=== PATIENT | female | born 1980 | race Hispanic/Latino ===

== ENCOUNTER 2017-02-22 19:09 | Emergency (ER) | payer OTHER, SELFPAY ==
[2017-02-22 20:03] LABS: Bilirubin Negative (Negative); Blood, Urine Negative (Negative); Glucose, Urine (Dipstick) Negative (Negative); Ketone, Urine Negative (Negative); Nitrite Negative (Negative); Protein, Urine (Dipstick) Negative (Neg-Trace); Urobilinogen 0.2 mg/dL (0.2-1.0)
[2017-02-22 20:04] LABS: Bacteria/HPF 1+ HPF (None Seen); Hyaline Casts/LPF 0-3 HYALINE CAST LPF (0-3 Hyaline); RBC/HPF 0-3 HPF (0-3); WBC/HPF 21-50 HPF (0-3)
[2017-02-22 20:17] LABS: #Basophils 0.1 thou/uL (0.0-0.2); #Eosinphils 0.1 thou/uL (0.0-0.7); #Lymphocytes 3.3 thou/uL (1.20-3.40); #Monocytes 0.8 thou/uL (0.11-0.59); #Neutrophils 5.2 thou/uL (1.40-6.50); %Basophils 0.7 % (0.0-1.0); %Eosinophils 1.2 % (0.0-10.0); %Lymphocytes 34.9 % (21.0-51.0); %Monocytes 8.8 % (0.0-10.0); Hematocrit 39.8 % (36.0-47.0); Mean Platelet Volume 6.8 fL (7.4-10.4); Red Blood Cell (RBC) Count 4.39 mill/uL (4.20-5.40); White Blood Cell (WBC) Count 9.5 thou/uL (4.8-10.8)
[2017-02-22 20:22] LABS: PTT 29.7 SEC (22.9-36.1)
[2017-02-22 20:31] LABS: ALT (SGPT) 14 U/L (8-55); AST (SGOT) 14 U/L (5-34); Alkaline Phosphatase 82 U/L (40-150); Anion Gap 15 mmol/L (10-20); BUN (Urea Nitrogen) 19 mg/dL (7.0-18.7); Bilirubin, Total 0.3 mg/dL (0.2-1.2); Calc. Creatinine Clearance 0 mL/min (70-130); Calcium 9.7 mg/dL (7.8-10.44); Carbon Dioxide 21 mmol/L (22-29); Chloride 105 mmol/L (98-107); Estimated GFR-MDRD Greater than 90; Protein, Total 8.4 g/dL (6.0-8.3)
--- NOTE | 2017-02-22 22:15 | ULT ---
EXAM: PELVIC ULTRASOUND 02/22/17 COMPARISON: 04/27/16 HISTORY: patient. Cramping. TECHNIQUE: Transabdominal and endovaginal imaging of the pelvis is performed. Ovaries are interrogated with gra y scale, color flow, and doppler imaging with spectral waveform analysis. FINDINGS: The uterus is identified, without myometrial masses. The uterus measures 5.3 x 5.4 x 9.4 cm. There i s a thickened homogeneous endometrium with a diameter of 1.7 cm. No evidence of a gestational sac, y olk sac or pole. Anechoic focus in the right ovary measuring 3.1 x 2.6 x 3.1 cm, likely representing a corpus luteal cyst. Overall, the right ovary measures 3.6 x 4.7 x 3.5 cm. Left ovary has a normal echotexture measuring 2.5 x 1.4 x 2.3 cm. There is a small amount of simple fluid in the cul-de-sac. OVARIAN DOPPLER: Vascular flow to the right ovary. Vascular flow to the left ovary could not be documented. Limited d ocumentation may be due to location of the ovary. IMPRESSION: 1. Thickened homogeneous endometrium without evidence of an intrauterine gestation. Differentia l considerations include early intrauterine gestation versus mid spontaneous versus sonogra phic occult ectopic. 2. Simple free fluid in the pelvis. 3. Left ovarian cyst likely corpus luteal cyst. 4. Nonvisualization of flow in the left ovary which is presumed to be due to the position of th e ovary. The echotexture of the left ovary is unremarkable and has not significantly changed when co mpared to the prior examination. 5. Followup ultrasound and serial beta HCGs are recommended. POS: [facility]YANNA
[2017-02-22] MEDS ORDERED: Acetaminophen 500 MG TAB ONE ×2 (23:00→23:03)
[2017-02-22] MEDS ORDERED: Nitrofurantoin Monohyd/M-Cryst 100 MG CAP PO SCH (23:15)
== END 2017-02-22 23:17 | disposition home or self-care (01) ==
LOC: ERS 19:09
DX: O20.0 Threatened abortion (principal); O23.41 Unspecified infection of urinary tract in pregnancy, first trimester; O16.1 Unspecified maternal hypertension, first trimester; Z3A.01 Less than 8 weeks gestation of pregnancy
CPT/HCPCS: 36415; 76856; 80053; 81003; 81015; 84702; 85025; 85610; 85730; 86900; 86901; 87480; 87491; 87510; 87591; 87660

== ENCOUNTER 2017-03-17 16:43 | Emergency (ER) | payer SELFPAY ==
[2017-03-17 17:27] LABS: Bilirubin Negative (Negative); Blood, Urine Negative (Negative); Glucose, Urine (Dipstick) Negative (Negative); Ketone, Urine Negative (Negative); Nitrite Negative (Negative); Protein, Urine (Dipstick) Negative (Neg-Trace); Urobilinogen 0.2 mg/dL (0.2-1.0)
[2017-03-17 21:25] LABS: #Eosinphils 0.1 thou/uL (0.0-0.7); #Lymphocytes 2.4 thou/uL (1.20-3.40); #Monocytes 0.6 thou/uL (0.11-0.59); #Neutrophils 3.7 thou/uL (1.40-6.50); %Basophils 0.7 % (0.0-1.0); %Eosinophils 1.4 % (0.0-10.0); %Lymphocytes 34.8 % (21.0-51.0); %Monocytes 9.1 % (0.0-10.0); Mean Platelet Volume 6.6 fL (7.4-10.4); Red Blood Cell (RBC) Count 4.03 mill/uL (4.20-5.40); White Blood Cell (WBC) Count 6.9 thou/uL (4.8-10.8)
--- NOTE | 2017-03-17 22:27 | ULT ---
PELVIC ULTRASOUND: History: Pelvic pain to the lower right side. 9 weeks . Comparison: 02-22-17 Technique: Transabdominal and endovaginal imaging of the pelvis is performed. Ovaries were interrogat ed with grayscale, color flow, and doppler imaging with spectral waveform analysis. FINDINGS: The uterus is identified. There are no myometrial masses. Uterus measures 6.4 x 7.7 x 11.1 cm. There is a complex nabothian cyst measuring 1.1 x 1.2 x 0.9 cm. Within the endometrium there is a gestational sac, yolk sac, and pole. Munson-rump length is 1.2 9 cm corresponding to gestational age of 7 weeks 3 days. There are heart tones at the rate of 1 41 bpm. Left ovary is not appreciated. In the right adnexa there is anechoic focus measuring 2.9 x 2.7 x 3.2 cm. Presumed right nabothian cy st. Cyst has not changed in size. Overall the right ovary measures 4.5 x 4.6 x 4.0 cm. There is no free fluid. No subchorionic hemorrhage. Ovarian Doppler: Vascular flow to the right ovary. IMPRESSION: 1. Single intrauterine gestation with heart tones. Average age by sonography is 7 weeks and 4 d ays. Estimated delivery date by sonography is 10-30-17. 2. Right ovarian cyst, unchanged from the prior examination. Possibility of a corpus luteal cyst is r aised. POS: [facility]
== END 2017-03-17 23:06 | disposition home or self-care (01) ==
LOC: ERS 16:43
DX: O09.521 Supervision of elderly multigravida, first trimester (principal); O99.89 Other specified diseases and conditions complicating pregnancy, childbirth and the puerperium; R10.32 Left lower quadrant pain; O10.011 Pre-existing essential hypertension complicating pregnancy, first trimester; Z3A.09 9 weeks gestation of pregnancy
CPT/HCPCS: 36415; 76856; 81003; 84702; 85025; 86850; 86900; 86901

== ENCOUNTER 2017-10-08 21:46 | Day surgery (SDC) | payer OTHER ==
[2017-10-08 22:29] VITALS: BMI 31.8
--- NOTE | 2017-10-08 22:57 | PDOC.LDHP ---
Labor and Delivery H&P Chief complaint: contractions HPI: 37yo at 36.6 by 7.4wk leatha presents for ctx, onset this evening, q4-5 per hour. She also reports nausea for the past couple of days and COOK, not resolved by Tylenol at home. She reports good FM, no LOF, no VB, and no scotoma. She has hx of A1GDM and reports her sugars are no greater than 120 at home. Current gestational age (weeks): 36 (36.6) Due date: 10/30/17 Dating criteria: first trimester ultrasound Grav: 6 Para: 3 OB History Details: 3 term , 2 complicated by preeclampsia 2 spontaneous abortions Current complications: gestational diabetes Abnormal US findings: Yes (polyhydramnios and placenta previa, resolved on last u/s done at 34wks) Past Medical History: none Current medications: pre-estiven vitamins Previous surgical history: none Social history: none - Physical Exam Vital signs reviewed and normal: yes General: NAD, resting Heart: RRR Lungs: CTAB Abdomen: gravid Extremeties: no edema FHT: category 1 [place] contractions every: q10-15 min - Vaginal Exam cm dilated: 2 Effacement: 50% Station: -2 - OB Labs Blood type: O RH: positive Antibody Screen: negative HIV: negative RPR: negative HEPSAg: negative 1 hour GCT: positive GBS: positive Urine drug screen: not done Rubella: immune - Assessment 37 yo at 36.6 by 1T u/s presents with ctx q10-15 min. sIUP: IOL wnl with the exception 1h ggt A1GDM: controlled with A1c of 5.4 and home sugars 120's. Hx of preeclampsia: with COOK and nausea, will check CBC, urine pro/cr, coags, and CMP. BP's wnl here AMA: declined quad screen Labor: cat 1 strip, 2/50/-2, cervical exam with thick white discharge, vp3 pending. check above labs for pre-E and recheck in 2h to evaluate change. - Plan Plan: observation in L&D <Pam Arvizu - Last Filed: 10/09/17 01:19> <Vipul Gibbs - Last Filed: 10/09/17 06:08> Allergies/Adverse Reactions: Allergies Allergy/AdvReac Type Severity Reaction Status Date / Time No Known Allergies Allergy Verified 10/08/17 22:24 Attending Addendum - Attending Addendum Date/Time: 10/09/17605 I personally evaluated the patient and discussed the management with Dr. Arvizu. I agree with and repeated the History, Examination, Assessment and Plan documented above with any addition or exceptions noted below. Pt with headache that has been waxing and waning x 1 week. No scotoma or visual symptoms. No RUQ/JOSSE pain. She has had some intermittent nausea but no vomiting. +FM, no LOF, has some blood on TP several days ago but none recently. Reassuring pressures. Will send labs, repeat APAP, dispo pending. <Vipul Gibbs - Last Filed: 10/09/17 06:08>
[2017-10-08 23:03] VITALS: BP 135/81; TEMP 98.1
[2017-10-08] MEDS ORDERED: Acetaminophen 500 MG TAB PO SCH (23:30)
[2017-10-08 23:58] LABS: #Eosinphils 0.1 thou/uL (0.0-0.7); #Monocytes 0.6 thou/uL (0.11-0.59); #Neutrophils 4.4 thou/uL (1.40-6.50); %Basophils 0.5 % (0.0-1.0); %Monocytes 8.5 % (0.0-10.0); %Neutrophils 61.9 % (42.0-75.0); Mean Corpuscular HGB CONC 35.1 g/dL (32.0-36.0); Mean Corpuscular Volume 91.3 fL (78.0-98.0); Mean Platelet Volume 7.1 fL (7.4-10.4); Platelet Count 242 thou/uL (130-400); RBC Distribution Width 12.9 % (11.5-14.5); Red Blood Cell (RBC) Count 3.76 mill/uL (4.20-5.40); White Blood Cell (WBC) Count 7.2 thou/uL (4.8-10.8)
[2017-10-09 00:24] LABS: ALT (SGPT) 16 U/L (8-55); AST (SGOT) 15 U/L (5-34); Albumin 3.4 g/dL (3.5-5.0); Alkaline Phosphatase 166 U/L (40-150); Anion Gap 14 mmol/L (10-20); BUN (Urea Nitrogen) 10 mg/dL (7.0-18.7); Bilirubin, Total 0.3 mg/dL (0.2-1.2); Calc. Creatinine Clearance 181 mL/min (70-130); Calcium 8.9 mg/dL (7.8-10.44); Carbon Dioxide 18 mmol/L (22-29); Chloride 108 mmol/L (98-107); Estimated GFR-MDRD Greater than 90; Globulin 3.2 g/dL (2.4-3.5); Glucose 92 mg/dL (70-105); Potassium 3.7 mmol/L (3.5-5.1); Protein, Total 6.6 g/dL (6.0-8.3); Sodium 136 mmol/L (136-145)
[2017-10-09 00:52] LABS: Creatinine, Urine 71.97 mg/dL (47-110); Protein, Urine Random Quant Less than 10 mg/dL
[2017-10-09 01:01] LABS: PTT 26.4 SEC (22.9-36.1); Prothrombin Time 12.8 SEC (12.0-14.7)
--- NOTE | 2017-10-09 02:22 | PDOC.EVN ---
Event Note - Event Note Event Note: Patient was checked 0215 and was 2.5/60/-2. Reports COOK is improved. Pre-E labs within normal, VP3 still pending. Ctx spaced increased after stimulation with exam, but have again spaced out to about q10 min. Cat 1 strip. With minimal change and normal labs, will d/c home. Likely patient is in latent labor. ER precautions given. <Pam Arvizu - Last Filed: 10/09/17 02:19> Attending Addendum - Attending Addendum Date/Time: 10/09/17 0609 Reassuring labs, pressures, and resolved headache. Will discharge with f/u at [facility]. <Vipul Gibbs - Last Filed: 10/09/17 06:09>
== END 2017-10-09 02:27 | disposition home or self-care (01) ==
LOC: L&D/OP 21:46
PROVIDERS: ATTEND Emergency Medicine
DX: O60.03 Preterm labor without delivery, third trimester (principal); O24.419 Gestational diabetes mellitus in pregnancy, unspecified control; Z3A.36 36 weeks gestation of pregnancy
CPT/HCPCS: 36415; 80053; 82570; 84156; 85025; 85610; 85730; 87480; 87510; 87660; 99285

== ENCOUNTER 2017-10-11 01:36 | Day surgery (SDC) | payer OTHER ==
[2017-10-11 02:02] VITALS: BP 129/65; TEMP 98.1
[2017-10-11 02:04] VITALS: BMI 31.8
--- NOTE | 2017-10-11 03:30 | PDOC.LDHP ---
Labor and Delivery H&P Chief complaint: decreased movement HPI: 37yo at 36.6 by 7.4wk letaha presents for decreased FM, reporting she hasn 't felt baby move since 1800 10/10. She denies N/V, COOK, no LOF, and no scotoma. She reports some blood tinged mucous discharge today. Had several ctx yesterday , but have down and is not currently having ctx at this time. She is A1GDM and reports her sugars are no greater than 120 at home. She has hx of preeclampsia with two prior pregnancies. She was recently seen in clinic and in the hospital. Current gestational age (weeks): 37 (37.0) Due date: 10/30/17 Dating criteria: first trimester ultrasound Grav: 6 Para: 3 OB History Details: 3 term , 2 complicated by preeclampsia 2 spontaneous abortions Current complications: gestational diabetes Abnormal US findings: Yes (Yes (polyhydramnios and placenta previa, resolved on last u/s done at 34wks) Past Medical History: none Current medications: pre-estiven vitamins Social history: none - Physical Exam Vital signs reviewed and normal: yes General: NAD Heart: RRR Lungs: nonlabored breathing Abdomen: gravid Extremeties: trace edema FHT: category 1 [place] contractions every: none - OB Labs Blood type: O RH: positive Antibody Screen: negative HIV: negative RPR: negative HEPSAg: negative 1 hour GCT: positive GBS: positive Urine drug screen: negative Rubella: immune - Assessment 37 yo at 36.6 by 1T u/s presents with decreased sIUP: IOL reviewed, wnl with the exception 1h ggt A1GDM: A1c of 5.4, reports home sugars <120 Hx of preeclampsia: no s/sx at this time, BP wnl, negative workup 2 days prior. On ASA, continue. AMA: declined quad screen Labor: cat 1 strip, no ctx apparent, last office check was 3cm per patient. BPP and growth u/s ordered. Will d/c or admit pending results. - Plan Plan: observation in L&D <Pam Arvizu - Last Filed: 10/11/17 03:44> <Emily Stephens - Last Filed: 10/11/17 04:03> Allergies/Adverse Reactions: Allergies Allergy/AdvReac Type Severity Reaction Status Date / Time No Known Allergies Allergy Verified 10/08/17 22:24 Attending Addendum - Attending Addendum Date/Time: 10/11/17 0359 I personally evaluated the patient and discussed the management with Dr. Arvizu and Dr. Dejesus I agree with the History, Examination, Assessment and Plan documented above with any addition or exceptions noted below. 37 yo female at 37.0 wks by 7.4 wk sono here for evaluation of decreased movement. Patient reports less movement from fetus today since 1800. Since arrival has felt movement and is more reassured. NST is reactive. No contractions. + movement on monitoring. BPP is currently pending along with growth. POC glucose 100. Patient reports home readings are less than 120. VS reviewed. BP WNL. Patient with hx of preE and on ASA ppx. Once BPP completed, as long as remains reassuring will d/c patient to home with follow up at PCP next week. Precautions discussed. Kathe <Emily Stephens - Last Filed: 10/11/17 04:03>
--- NOTE | 2017-10-11 06:44 | PDOC.EVN ---
Event Note - Event Note Event Note: Patient has had a reactive strip and has 8/8 BPP. Awaiting official report for growth. Will send home with f/u this upcoming week and ER precautions.
--- NOTE | 2017-10-11 08:09 | ULT ---
BIOPHYSICAL PROFILE: Date: 10/11/17 INDICATION: Decreased movement. FINDINGS/IMPRESSION: Tone: 2 Breathin Movement: 2 Amniotic Fluid: 2 Total Score: 8/8 FAY recorded at 7.2 cm. Position: Vertex. Placenta: Anterior. Heart Rate: 131. POS: [facility]
[2017-10-11] MEDS ORDERED: metroNIDAZOLE 500 MG TAB PO SCH (09:00)
== END 2017-10-11 06:20 | disposition home or self-care (01) ==
LOC: L&D/OP 01:36
PROVIDERS: ATTEND Student in an Organized Health Care Education/Training Program
DX: O36.8130 Decreased fetal movements, third trimester, not applicable or unspecified (principal); O24.419 Gestational diabetes mellitus in pregnancy, unspecified control; Z3A.37 37 weeks gestation of pregnancy
CPT/HCPCS: 36416; 76819; 99282

== ENCOUNTER 2017-10-23 05:28 | Inpatient (IN) | payer MEDICAID, OTHER, SELFPAY ==
[2017-10-23 06:16] VITALS: BMI 32.4
[2017-10-23] MEDS: Lactated Ringer's 1,000 ML IV SCH ×2 (06:40→12:15)
[2017-10-23] MEDS ORDERED: Penicillin G Potassium 5 MILL.UNITS VIAL ONE (06:58)
[2017-10-23] MEDS ORDERED: Promethazine HCl 25 MG/ML VIAL IM PRN (07:07)
[2017-10-23] MEDS ORDERED: Ondansetron HCl/PF 4 MG/2 ML Vial IVP PRN (07:07)
[2017-10-23] MEDS ORDERED: Lidocaine 1% (PF) 30 ML VIAL SC PRN (07:07)
[2017-10-23] MEDS ORDERED: Ibuprofen 800 MG TAB PO PRN (07:07)
[2017-10-23] MEDS ORDERED: NS / Oxytocin 40 units/1000ml 1,000 ML IV PRN (07:07)
[2017-10-23] MEDS ORDERED: Penicillin G Potassium 5 MILL.UNITS in Sodium Chloride 0.9% 100 ML IVPB SCH (07:15)
[2017-10-23] MEDS ORDERED: NS w/ Oxytocin 10 units 500 ML IV SCH (07:15)
[2017-10-23 07:16] LABS: Hemoglobin 12.4 g/dL (12.0-16.0); Mean Corpuscular HGB CONC 33.4 g/dL (32.0-36.0); Mean Corpuscular Hemoglobin 30.8 pg (27.0-31.0); Mean Corpuscular Volume 92.1 fL (78.0-98.0); Mean Platelet Volume 8.5 fL (7.4-10.4); Platelet Count 238 thou/uL (130-400); RBC Distribution Width 13.1 % (11.5-14.5); Red Blood Cell (RBC) Count 4.02 mill/uL (4.20-5.40); White Blood Cell (WBC) Count 7.1 thou/uL (4.8-10.8)
--- NOTE | 2017-10-23 07:24 | PDOC.LDHP ---
Addendum entered and electronically signed by Praveen Lentz DO 10/23/17 07:51: Pt has had 2 BPs with systolics measured in 150-160 range. Will order CMP, Uric acid, urine protein/creatinine to eval for pre-e Original Note: Labor and Delivery H&P Chief complaint: scheduled induction HPI: Pt is a presenting for elective induction at 39wks, moore score 7. She is feeling well and has no acute complaints, during this she has had glucose intolerance that has been controlled by diet. Ultrasound has revealed polyhydramnios and placenta previa both of which have confirmed to be resolved. In past pregnancies she has had pre-ecclampsia. She denies headache, changes in vision, chest pain, or difficulty breathing. Current gestational age (weeks): 39 Due date: 10/30/17 Dating criteria: last menstrual period, first trimester ultrasound Grav: 6 Para: 3 Current complications: gestational diabetes Abnormal US findings: Yes (polyhydramnios and placenta previa resolved) Past Medical History: Pre-ecclampsia Current medications: pre-estiven vitamins, other (aspirin) Previous surgical history: dilation and curettage Social history: none - Physical Exam Vital signs reviewed and normal: yes General: NAD Heart: RRR Lungs: CTAB Abdomen: gravid Extremeties: no edema FHT: category 1 (baseline 140, accelerations present, moderate variability, no decelerations) - Vaginal Exam cm dilated: 4 Effacement: 50% Station: -2 - OB Labs Blood type: O RH: positive Antibody Screen: negative HIV: negative RPR: negative HEPSAg: negative 1 hour GCT: positive (205) GBS: positive Urine drug screen: not done Rubella: immune - Assessment L&D Assessment: elective induction at term GDMa1 well controlled on diet, AMA, GBS+, Hx of polyhydramnios during - resolved - Plan Plan: admit to L&D, labor augmentation if indicated, GBS antibiotic prophylaxis (PCN 5 million unitsx1 dose followed by 2.5 mil u Q4hr until delivery) <Praveen Lentz - Last Filed: 10/23/17 07:40> <Rosy Aguilera - Last Filed: 10/23/17 11:32> Allergies/Adverse Reactions: Allergies Allergy/AdvReac Type Severity Reaction Status Date / Time No Known Allergies Allergy Verified 10/23/17 06:09 Attending Addendum - Attending Addendum Date/Time: 10/23/17 2098 I personally evaluated the patient and discussed the management with Dr. Lentz I agree with the History, Examination, Assessment and Plan documented above with any addition or exceptions noted below - 37 yo @ 39 weeks admitted for elective induction. Patient denies any LOF, VB. (+) FM. feeling intermittent ctx. Denies any COOK/visual changes. Afebrile BP 140-150/70-80s Exam repeated by me and agree with resident's documentation. A/P: 1) IUP @39 weeks for elective induction- plan to start pitocin after initiation of PCN for GBS prophylaxis. 2) Elevated BP- has h/o Pre-E in prior pregnancies- labs drawn and within normal limits. Continue to monitor closely. <Rosy Aguliera - Last Filed: 10/23/17 11:32>
[2017-10-23] MEDS ORDERED: Butorphanol Tartrate 1 MG/ML VIAL SLOW IVP PRN (07:44)
[2017-10-23 07:48] LABS: HBSAg Index 0.16 S/CO (0-0.99); Hep B Surf Ag Non-Reactive S/CO (NonReactive); Syphilis Antibody Nonreactive (Nonreactive); Syphilis Antibody Index 0.06 S/CO (<1.00 Non-Reactive)
[2017-10-23 08:35] LABS: Creatinine, Urine 91.35 mg/dL (47-110); Protein, Urine Random Quant Less than 10 mg/dL
[2017-10-23] MEDS ORDERED: Bupivacaine HCl 0.25%/Epi 0.0005/PF 10 ML VIAL FS ONE (09:00)
[2017-10-23 09:10] LABS: ALT (SGPT) 15 U/L (8-55); AST (SGOT) 20 U/L (5-34); Albumin 3.5 g/dL (3.5-5.0); Alkaline Phosphatase 184 U/L (40-150); Anion Gap 16 mmol/L (10-20); BUN (Urea Nitrogen) 10 mg/dL (7.0-18.7); Bilirubin, Total 0.3 mg/dL (0.2-1.2); Calc. Creatinine Clearance 168 mL/min (70-130); Calcium 9.2 mg/dL (7.8-10.44); Carbon Dioxide 18 mmol/L (22-29); Chloride 107 mmol/L (98-107); Estimated GFR-MDRD Greater than 90; Glucose 81 mg/dL (70-105); Potassium 4.1 mmol/L (3.5-5.1); Protein, Total 6.5 g/dL (6.0-8.3); Sodium 137 mmol/L (136-145); Uric Acid 4.6 mg/dL (2.6-6.0)
[2017-10-23] MEDS ORDERED: DISCONTINUE ALL PREVIOUS NARCOTICS FS SCH (10:30)
[2017-10-23] MEDS ORDERED: Bupivacaine 0.75% 13.4 ML, fentaNYL Citrate/PF 400 MCG in Sodium Chloride 0.9% 78.6 ML EPIDURAL SCH (10:30)
[2017-10-23] MEDS: Penicillin G 2.5 MILL.units 2.5 MILL.UNITS in Premix Bag 1 BAG IVPB SCH ×2 (11:30→16:00)
[2017-10-23] MEDS ORDERED: diphenhydrAMINE 50 MG/ML VIAL IVP PRN (12:32)
[2017-10-23] MEDS ORDERED: Eucerin (Mineral Oil/Petrolatum,White) 30 gm Jar TOP PRN (12:32)
[2017-10-23] MEDS ORDERED: Naloxone HCl 0.4 mg/ml Vial IVP PRN (12:32)
[2017-10-23] MEDS ORDERED: ePHEDrine/0.9% NaCl/PF SYRINGE 50 mg/10 ml SLOW IVP PRN (12:32)
[2017-10-23] MEDS ORDERED: Lactated Ringer's 500 ML IV PRN (12:32)
[2017-10-23] MEDS ORDERED: fentaNYL Citrate/PF 400 MCG, Bupivacaine 0.5% 20 ML in Sodium Chloride 0.9% 72 ML EPIDURAL SCH (12:45)
[2017-10-23] MEDS ORDERED: Communication Order-Pharmacy FS SCH (12:45)
--- NOTE | 2017-10-23 13:18 | PDOC.LDPN ---
Labor & Delivery Progress Note - Subjective Subjective: comfortable - Objective Abnormal vital signs: pressures remain elevated, not severe at this time General: NAD, resting Uterine fundus: non tender Dilation: 4 Effacement: 50% Station: -1 FHT: category 1, variability present (baseline 140, good accelerations ) - Assessment (1) Elective induction of labor planned Code(s): [id number] - Current Visit: Yes Status: Acute Comment: pt continues to progress, Pitocin being administered, increase per protocol (2) induced hypertension Code(s): O13.9 - GESTATIONAL HTN W/O SIGNIFICANT PROTEINURIA, UNSP TRIMESTER Current Visit: Yes Status: Acute Comment: not in severe range, will continue to monitor q15min (3) GBS (group B Streptococcus carrier), +RV culture, currently Code(s): O99.820 - STREPTOCOCCUS B CARRIER STATE COMPLICATING Current Visit: Yes Status: Acute Comment: PCN x2 doses Plan: labor augmentation (Pitocin IV )
--- NOTE | 2017-10-23 14:42 | PDOC.LDPN ---
Labor & Delivery Progress Note - Subjective Subjective: comfortable - Objective Abnormal vital signs: pressures continued to be elevated, with occasional in severe range General: NAD Uterine fundus: non tender Dilation: 5 Effacement: 50% Station: -1 FHT: category 1, variability present (baseline 140, accelerations presents, no decelerations ) Procedures: AROM AROM: clear fluid - Assessment (1) Elective induction of labor planned Code(s): [id number] - Current Visit: Yes Status: Acute Comment: pt continues to progress, Pitocin being administered, increase per protocol. AROM: clear fluid. Pit 16 (2) induced hypertension Code(s): O13.9 - GESTATIONAL HTN W/O SIGNIFICANT PROTEINURIA, UNSP TRIMESTER Current Visit: Yes Status: Acute Comment: not in severe range, will continue to monitor q15min (3) GBS (group B Streptococcus carrier), +RV culture, currently Code(s): O99.820 - STREPTOCOCCUS B CARRIER STATE COMPLICATING Current Visit: Yes Status: Acute Comment: PCN x2 doses Plan: continue plan of care
[2017-10-23] MEDS ORDERED: Magnesium Sulfate 20 gm/500 ml 20 GM/500 ML BAG ONE (16:05)
[2017-10-23] MEDS ORDERED: Calcium Gluc 4.6 MEQ/10 ML (100 MG/ML) SLOW IVP PRN (16:05)
--- NOTE | 2017-10-23 16:08 | PDOC.EVN ---
Event Note - Event Note Event Note: blood pressure is more consistently in severe range, pt is now complaining of headache. Will start magnesium for gestational hypertension with severe features
[2017-10-23] MEDS ORDERED: Magnesium Sulfate 20 GM/WATER 500 ML BAG IVPB SCH (16:15)
[2017-10-23] MEDS: Magnesium Sulfate 20 gm/500 ml 20 GM/500 ML BAG IVPB SCH (16:40)
[2017-10-23] MEDS ORDERED: Misoprostol 200 MCG TAB ONE (16:42)
[2017-10-23] MEDS ORDERED: NS / Oxytocin 40 units/1000ml 1,000 ML ONE (16:43)
--- NOTE | 2017-10-23 17:02 | PDOC.OPDEL ---
OB Operative/Delivery Note Delivery Dr/Surgeon: Dr. Lentz Assist: Dr. Aguilera (attending) Pre-Delivery Diagnosis: elective induction Procedure/Post Delivery Dx: other (pre-eclampsia with severe features) Weeks gestation: 39 Anesthesia: epidural - Findings A - 1 min: 8 - 5 min: 9 - Additional Findings/Plan Placenta delivered: spontaneous Repaired Obstetrical Laceration: none Estimated blood loss: 150 Compilations/Other Findings: Delivery Note: This is 37yo F @ 39wks who delivered a viable F infant at 1640. Following after initiation of induction pt had elevated blood pressures with severe features and was diagnosed with pre-eclampsia and started on magnesium. She progressed in labor to complete and delivered a vigorous female was delivered over an intact perineum in the _OA position. Anterior Shoulder and then remainder of the body delivered. No nuchal cord. The head was held down and mouth and nares were bulb suctioned. Cord clamped (after delayed cord clamping) and cut and cord blood collected. Placenta delivered intact (in the [place] presentation) with a 3 vessel cord noted. Fundal massage was performed and the fundus was firm. The cervix and vagina were inspected and found to be free of lacerations. went to nursery in good condition for routine care. Apgars were _8/9__ at 1 & 5 minutes, respectively. Patient tolerated delivery well and went to after routine recovery/ care. Post delivery plan: recovery in LICU <Praveen Lentz - Last Filed: 10/23/17 17:00> Attending Addendum - Attending Addendum Date/Time: 10/23/171815 I was present and supervised Dr. Lentz for this 37 yo @39 weeks admitted for elective induction. During course of labor, patient noted to have several elevated BP, then developed a COOK. Patient diagnosed with pre-eclampsia with severe features and started on magnesium sulfate. She progressed to complete and delivery a viable female infant over an intact perineum. Apgars 8/ 9. Placenta delivered spontaneously and intact. 3V cord. EBL 150mL. No lacerations. Infant and mother in stable condition. <Rosy Aguilera - Last Filed: 10/23/17 18:21>
[2017-10-23] MEDS ORDERED: Milk Of Magnesia 30 ML UDCUP PO PRN (17:11)
[2017-10-23] MEDS ORDERED: traMADol HCl 50 MG TAB PO PRN (17:11)
[2017-10-23] MEDS ORDERED: Calcium Gluconate 4.6 MEQ in Sodium Chloride 0.9% 100 ML IVPB PRN (17:11)
[2017-10-23] MEDS ORDERED: Adacel (T-DAP) 0.5 ML VIAL IM ONE (17:11)
[2017-10-23] MEDS ORDERED: Bisacodyl 10 MG SUPP PR PRN (17:11)
[2017-10-23] MEDS ORDERED: NS / Oxytocin 40 units/1000ml 1,000 ML IV SCH (17:15)
[2017-10-23] MEDS: Acetaminophen 325 MG TAB PO PRN (20:21)
--- NOTE | 2017-10-23 21:43 | PDOC.EVN ---
Addendum entered and electronically signed by Lyla Downing MD 10/23/17 22:06: A&P: 37yo F, s/p @39.0 wks (by 7.4 wk sono) on 10/23/17 @ 1650. No PPH. Gestational HTN with severe features. Stable, continuing Mag until 24 hrs after delivery. Next check at 0100. Original Note: Event Note - Event Note Event Note: Mag Check at 2100. Pt states that her headache has improved with Tylenol. Diet was changed to full liquids. Patient states she is hungry. Vitals: BP all < 160 systolic. Highest 149/78. R 14. T 97.5. Hr 84. PE: Heart RRR, no murmurs rubs or gallops. Lungs bilaterally clear to auscultation. Reflexes 2+ bilaterally in bicep, patella, and achilles; downgoing babinski bilaterally. UOP adequate at > 200 cc/hr. A&P: stable. Next check at 0100. <Lyla Downing - Last Filed: 10/23/17 21:53> - Event Note Event Note: Patient with preeclampsia with severe features vs severe gestational HTN (labs not repeated but patient with severe BP and headache) s/p on 10/22/17 now on ppx mag sulfate. Now with mild range pressures. Asymptomatic. UOP > 200 mL per hour. Continue mag and close monitoring on LDR ICU. Repeat exam q 4 hours. No s/sx of mag tox. ABrayMD <Emily Stephens - Last Filed: 10/23/17 22:17>
[2017-10-24] MEDS: Docusate Calcium (SURFAK) 240 MG CAP PO SCH ×3 (00:05→21:26)
[2017-10-24] MEDS: Acetaminophen 325 MG TAB PO PRN ×3 (00:08→17:12)
[2017-10-24] MEDS: Magnesium Sulfate 20 gm/500 ml 20 GM/500 ML BAG IVPB SCH (00:59)
--- NOTE | 2017-10-24 02:42 | PDOC.EVN ---
Event Note - Event Note Event Note: Mag Check at 0200 (10/24/17) Pt is feeling well. No complaints Vitals: BP all < 160 systolic. Highest 156/56. R 16. HR 82. PE:Heart RRR, no murmurs rubs or gallops. Lungs bilaterally clear to auscultation. Reflexes 2+ bilaterally in bicep, patella, and achilles; downgoing babinski bilaterally. Pitting edema 1+ up to ankles. SCDs in place. UOP adequate at average 140 per hour for last 4 hours. A&P: 37yo F, s/p @39.0 wks (by 7.4 wk sono) on 10/23/17 @ 1650. Preeclampsia with severe features vs severe gestation HTN (labs not repeated by pt with severe BP and headache). S/p on 10/22/17 now on ppx mag. Mild range pressures, asymptomatic. Continue mag and close monitoring on LDR ICU. Repeat exam q4 hours. No symptoms of mag tox. <Lyla Downing - Last Filed: 10/24/17 02:37> - Event Note Event Note: 37 yo female s/p on 10/23/17 now with preE with severe features vs severe gHTN. On mag for ppx. Doing well. Remains asymptomatic. BP normotensive to mild range. Will continue for 24 hours post delivery. UOP WNL No s/sx of mag tox. ABrayMD <Emily Stephens - Last Filed: 10/25/17 08:27>
[2017-10-24] MEDS: Lactated Ringer's 1,000 ML IV SCH ×3 (03:12→17:17)
--- NOTE | 2017-10-24 05:19 | PDOC.EVN ---
Event Note - Event Note Event Note: Mag Check at 0500 (10/24/17) Pt had back pain 10/21, nurse gave tylenol and pain is now /. Vitals: BP all < 160 systolic. Currently 122/67. R 16. HR 69. T 98.3 PE:Heart RRR, no murmurs rubs or gallops. Lungs bilaterally clear to auscultation. Reflexes 2+ bilaterally in bicep, patella, and achilles; downgoing babinski bilaterally. UOP adequate ranging 140-220 per hour for last 4 hours. A&P: 37yo F, s/p @39.0 wks (by 7.4 wk sono) on 10/23/17 @ 1650. Preeclampsia with severe features vs severe gestation HTN (labs not repeated by pt with severe BP and headache). S/p on 10/22/17 now on ppx mag. Mild range pressures, asymptomatic. Continue mag and close monitoring on LDR ICU. Repeat exam q4 hours. No symptoms of mag tox. <Lyla Downing - Last Filed: 10/24/17 05:16> - Event Note Event Note: 37 yo female s/p on 10/23/17 now with preE with severe features vs severe gHTN PPD#1 Doing well. Asymptomatic. UOP WNL. BP normotensive to mild range. Continue mag ppx x 24 hours post delivery ABrayMD <Emily Stephens - Last Filed: 10/25/17 08:30>
[2017-10-24 05:56] LABS: Mean Corpuscular HGB CONC 34.5 g/dL (32.0-36.0); Mean Corpuscular Hemoglobin 31.6 pg (27.0-31.0); Mean Corpuscular Volume 91.6 fL (78.0-98.0); Mean Platelet Volume 7.3 fL (7.4-10.4); Platelet Count 227 thou/uL (130-400); RBC Distribution Width 13.2 % (11.5-14.5); White Blood Cell (WBC) Count 9.1 thou/uL (4.8-10.8)
--- NOTE | 2017-10-24 06:27 | PDOC.PP ---
Post Progress Note Post Day #: 1 Subjective: Pt is resting comfortably in bed. She complained of some mild back pain overnight which was relieved with tylenol. Today she has no complaints. She denies headache, chest pain, shortness of breath, numbness or tingling. Her cather remains in with 125-150mls urine/hour. PO intake tolerated: yes (clear liquids) Flatus: yes Ambulation: no Vital Signs (12 hours) Temp Pulse Resp BP 10/24/17 04:59 98.3 F 69 16 122/67 10/24/17 04:00 98.5 F 77 18 10/24/17 01:00 98.5 F 85 18 121/68 10/24/17 00:00 98.2 F 79 18 10/23/17 20:00 97.5 F L 79 14 Weight Weight 83.007 kg - Physical Examination General: NAD Cardiovascular: no m/r/g, RRR Respiratory: clear to auscultation bilaterally, non-labored breathing Abdominal: + bowel sounds, no distention Neurological: no gross focal deficits Psychiatric: normal affect Result Diagrams: 10/24/17 05:49 10/23/17 07:56 Additional Labs: Post Labs Blood Type O POSITIVE 10/23/17 06:41 Hep Bs Antigen Non-Reactive S/CO (NonReactive) 10/23/17 06:41 (1) Elective induction of labor planned Code(s): [id number] - Status: Acute Comment: pt continues to progress, Pitocin being administered, increase per protocol. AROM: clear fluid. Pit 16 (2) induced hypertension Code(s): O13.9 - GESTATIONAL HTN W/O SIGNIFICANT PROTEINURIA, UNSP TRIMESTER Status: Acute Comment: not in severe range, will continue to monitor q15min (3) GBS (group B Streptococcus carrier), +RV culture, currently Code(s): O99.820 - STREPTOCOCCUS B CARRIER STATE COMPLICATING Status : Acute Comment: PCN x2 doses - Assessment/Plan 1. Spotaneous vaginal delivery - 1640 on 10/23, no lacerations or excessive bleeding - delivery of vigorous TAGA F 2. Gestational hypertension with severe features - pressures have trended down to normal range since delivery - Continue mag IV, monitor pressures and for mag toxicity 3. GBS (+) - treated adequately during labor - continue to monitor baby Dispo: Increased pressures and headache resolved, consider stopping mag and transferring to for monitoring <Praveen Lentz - Last Filed: 10/24/17 09:03> Vital Signs (12 hours) Temp Pulse Resp BP 10/24/17 08:00 97.9 F 78 18 10/24/17 04:59 98.3 F 69 16 122/67 10/24/17 04:00 98.5 F 77 18 10/24/17 01:00 98.5 F 85 18 121/68 Weight Weight 83.007 kg Result Diagrams: 10/24/17 05:49 10/23/17 07:56 Additional Labs: Post Labs Blood Type O POSITIVE 10/23/17 06:41 Hep Bs Antigen Non-Reactive S/CO (NonReactive) 10/23/17 06:41 <Rosy Aguilera - Last Filed: 10/24/17 12:28> Attending Addendum - Attending Addendum Date/Time: 10/24/17 1219 I personally evaluated the patient and discussed the management with Dr. Lentz. I agree with the History, Examination, Assessment and Plan documented above with any addition or exceptions noted below- Patient c/o intermittent COOK and back pain- both relieved with tylenol. Denies any abdominal pain. Afebrile BP 120-140/70-80s; U/O 120-240mL/hr A/P: 1) Pre-eclampsia with severe features- diuresing well. Continue magnesium until 24 hours post delivery. H/H stable. 2) PPD#1 s/p - continue routine care <Rosy Aguilera - Last Filed: 10/24/17 12:28>
[2017-10-24] MEDS: Ferrous Sulfate 325 MG TAB PO SCH ×2 (08:29→17:16)
[2017-10-24] MEDS: Prenatal Vitamin 1 TAB PO SCH (08:29)
--- NOTE | 2017-10-24 08:57 | PDOC.EVN ---
Event Note - Event Note Event Note: Pt complains of headache, given tylenol Vitals: BP all < 160 systolic. Currently 128/71. R 16. HR 69. T 98.3 PE:Heart RRR, no murmurs rubs or gallops. Lungs bilaterally clear to auscultation. Reflexes 2+ bilaterally in bicep, patella, and achilles. UOP adequate: 280 last hour. A&P: 37yo F, s/p @39.0 wks (by 7.4 wk sono) on 10/23/17 @ 1650. Preeclampsia with severe features vs severe gestation HTN (labs not repeated by pt with severe BP and headache). S/p on 10/23/17 now on ppx mag. Mild range pressures, reported headache. Continue mag and close monitoring on [facility] ICU. Repeat exam q4 hours. No symptoms of mag tox.
--- NOTE | 2017-10-24 12:22 | PDOC.EVN ---
Event Note - Event Note Event Note: Pt complains of headache, weakness, and visual hallucinations. Given tylenol, ordered mag level. Vitals: BP all < 160 systolic. Currently 124/78. R 16. HR 71. T 98.3 PE:Heart RRR, no murmurs rubs or gallops. Lungs bilaterally clear to auscultation. Reflexes 2+ bilaterally in bicep, patella, and achilles. UOP adequate: 180 last hour. A&P: 37yo F, s/p @39.0 wks (by 7.4 wk sono) on 10/23/17 @ 1650. Preeclampsia with severe features vs severe gestation HTN (labs not repeated by pt with severe BP and headache). S/p on 10/23/17 now on ppx mag. Mild range pressures, reported headache. Drop mag to 1g/hr and close monitoring on [facility] ICU. Repeat exam q4 hours.
--- NOTE | 2017-10-24 18:03 | PDOC.EVN ---
Event Note - Event Note Event Note: Pt complains of headache, weakness, and some back pain, the tylenol is helping to control some of the pain. Vitals: BP mostly < 160 systolic. Currently 171/84. R 16. HR 78. T 98.3, previous 140/78, a lot of family is in the room PE:Heart RRR, no murmurs rubs or gallops. Lungs bilaterally clear to auscultation. Reflexes 2+ bilaterally in bicep, patella, and achilles. UOP adequate: 300 last hour. A&P: 37yo F, s/p @39.0 wks (by 7.4 wk sono) on 10/23/17 @ 1650. Preeclampsia with severe features vs severe gestation HTN (labs not repeated by pt with severe BP and headache). S/p on 10/23/17 now on ppx mag. Mild range pressures, reported headache. mag stopped transfer to post- . Repeat BP q4 hours.
[2017-10-25] MEDS: Acetaminophen 325 MG TAB PO PRN ×2 (05:06→14:14)
--- NOTE | 2017-10-25 06:59 | PDOC.PP ---
Post Progress Note Post Day #: 2 Subjective: Pt is resting comfortably in bed, well. Denies any headache, chest pain, or shortness of breath. No complaints overnight, would like to go home today. PO intake tolerated: yes Flatus: yes Ambulation: yes Vital Signs (12 hours) Temp Pulse Resp BP 10/25/17 05:00 98.3 F 67 16 119/58 L 10/24/17 23:31 98.2 F 70 16 126/73 10/24/17 20:30 98.0 F 72 16 118/73 10/24/17 20:00 97.8 F 77 18 Weight Weight 83.007 kg - Physical Examination General: NAD Cardiovascular: no m/r/g, RRR Respiratory: clear to auscultation bilaterally Abdominal: + bowel sounds Fundus firm & at: umbilicus Neurological: no gross focal deficits Psychiatric: normal affect Result Diagrams: 10/24/17 05:49 10/23/17 07:56 Additional Labs: Post Labs Blood Type O POSITIVE 10/23/17 06:41 Hep Bs Antigen Non-Reactive S/CO (NonReactive) 10/23/17 06:41 (1) Elective induction of labor planned Code(s): WAJ6504 - Status: Acute (2) induced hypertension Code(s): O13.9 - GESTATIONAL HTN W/O SIGNIFICANT PROTEINURIA, UNSP TRIMESTER Status: Acute (3) GBS (group B Streptococcus carrier), +RV culture, currently Code(s): O99.820 - STREPTOCOCCUS B CARRIER STATE COMPLICATING Status : Acute Comment: PCN x2 doses - Assessment/Plan 1. Spotaneous vaginal delivery - 1640 on 10/23, no lacerations or excessive bleeding - delivery of vigorous TAGA F 2. Gestational hypertension with severe features - pressures have trended down to normal range since delivery - continue to monitor in 3. GBS (+) - treated adequately during labor - continue to monitor baby Dispo: Pt continues to improve, pressures were in normal range overnight, possible discharge later today <Praveen Lentz - Last Filed: 10/25/17 09:01> Vital Signs (12 hours) Temp Pulse Resp BP 10/25/17 08:10 98.4 F 84 20 121/60 10/25/17 05:00 98.3 F 67 16 119/58 L 10/24/17 23:31 98.2 F 70 16 126/73 Weight Weight 83.007 kg Result Diagrams: 10/24/17 05:49 10/23/17 07:56 Additional Labs: Post Labs Blood Type O POSITIVE 10/23/17 06:41 Hep Bs Antigen Non-Reactive S/CO (NonReactive) 10/23/17 06:41 <Rosy Aguilera - Last Filed: 10/25/17 11:20> Attending Addendum - Attending Addendum Date/Time: 10/25/17 [id number] I personally evaluated the patient and discussed the management with Dr. Lentz I agree with the History, Examination, Assessment and Plan documented above with any addition or exceptions noted below- Patient without complaints. Afebrile VSS. A/P: 1) PPD#2 s/p - contonue routine care. 2) Pre-eclampsia with severe features- BP much improved; off magnesium since last night. If BP remain stable, plan to d/c home later today. <Rosy Aguilera - Last Filed: 10/25/17 11:20>
[2017-10-25] MEDS: Ferrous Sulfate 325 MG TAB PO SCH (09:12)
[2017-10-25] MEDS: Prenatal Vitamin 1 TAB PO SCH (09:13)
[2017-10-25] MEDS: Docusate Calcium (SURFAK) 240 MG CAP PO SCH (09:13)
[2017-10-25 13:44] VITALS: TEMP 98.3
[2017-10-25 13:45] VITALS: BP 133/67
[2017-10-25] MEDS ORDERED: Ibuprofen 600 MG TAB PO SCH (14:15)
== END 2017-10-25 17:10 | disposition home or self-care (01) | DRG 775 ==
LOC: L&D 05:28 → 3SW 10-24 20:45
PROVIDERS: ADMIT Student in an Organized Health Care Education/Training Program; ATTEND Student in an Organized Health Care Education/Training Program
PROC: 10E0XZZ Delivery of Products of Conception, External Approach (ICD-10-PCS; principal; 2017-10-23)
PROC: 3E033VJ Introduction of Other Hormone into Peripheral Vein, Percutaneous Approach (ICD-10-PCS; 2017-10-23)
DX: O24.429 Gestational diabetes mellitus in childbirth, unspecified control (principal); Z37.0 Single live birth; Z3A.39 39 weeks gestation of pregnancy; O09.523 Supervision of elderly multigravida, third trimester; O13.4 Gestational [pregnancy-induced] hypertension without significant proteinuria, complicating childbirth; O99.824 Streptococcus B carrier state complicating childbirth
CPT/HCPCS: 36415; 51702; 80053; 82570; 83735; 84156; 84550; 85027; 86780; 86850; 86900; 86901; 87340; J2540; J3010; J3475; J7050

== ENCOUNTER 2020-08-06 16:13 | Inpatient (IN) | payer MEDICAID, SELFPAY ==
[2020-08-06] MEDS ORDERED: Ondansetron PF 4 MG/2 ML Vial ONE (16:37)
[2020-08-06 16:53] LABS: #Basophils 0.1 thou/uL (0.0-0.2); #Eosinphils 0.1 thou/uL (0.0-0.7); #Lymphocytes 1.7 thou/uL (1.20-3.40); #Monocytes 0.4 thou/uL (0.11-0.59); #Neutrophils 4.8 thou/uL (1.40-6.50); %Basophils 0.8 % (0.0-1.0); %Eosinophils 1.1 % (0.0-10.0); %Lymphocytes 23.7 % (21.0-51.0); %Monocytes 6.2 % (0.0-10.0); %Neutrophils 68.3 % (42.0-75.0); Hemoglobin 9.5 g/dL (12.0-16.0); Mean Platelet Volume 7.6 fL (7.4-10.4); Platelet Count 401 thou/uL (130-400); RBC Distribution Width 15.3 % (11.5-14.5); Red Blood Cell (RBC) Count 3.95 mill/uL (4.20-5.40)
[2020-08-06 17:09] LABS: Anisocytosis SLIGHT = 6-15 cells (100X) (0-5/hpf); BHCG - Serum Negative (NEGATIVE); MDiff Complete? YES; Mean Corpuscular HGB CONC 32.3 g/dL (32.0-36.0); Mean Corpuscular Volume 74.3 fL (78.0-98.0); Pregs Control Background? CLEAR/WHITE (CLR/WHITE); Pregs Control Bar Appear? YES (CONTROL BAR)
[2020-08-06 17:14] LABS: ALT (SGPT) 36 U/L (8-55); AST (SGOT) 23 U/L (5-34); Albumin 4.1 g/dL (3.5-5.0); Alkaline Phosphatase 167 U/L (40-110); Anion Gap 14 mmol/L (10-20); BUN (Urea Nitrogen) 13 mg/dL (7.0-18.7); Bilirubin, Total 0.3 mg/dL (0.2-1.2); Calc. Creatinine Clearance 0 mL/min (70-130); Calcium 9.4 mg/dL (7.8-10.44); Carbon Dioxide 23 mmol/L (22-29); Chloride 104 mmol/L (98-107); Globulin 3.5 g/dL (2.4-3.5); Glucose 115 mg/dL (70-105); Lipase 15 U/L (8-78); Potassium 3.5 mmol/L (3.5-5.1); Protein, Total 7.6 g/dL (6.0-8.3); Sodium 137 mmol/L (136-145)
[2020-08-06] MEDS ORDERED: Fentanyl 100 MCG/2 ML VIAL ONE (18:11)
[2020-08-06 19:56] LABS: Bacteria/HPF None Seen HPF (None Seen); Bilirubin Negative (Negative); Blood, Urine 1+ (Negative); Clarity Clear (Clear); Glucose, Urine (Dipstick) Normal (Negative); Ketone, Urine Negative (Negative); Leukocyte 75 Leu/uL (Negative); Nitrite Negative (Negative); Protein, Urine (Dipstick) Negative (Neg-Trace); RBC/HPF 0-3 HPF (0-3); Specific Gravity, Urine 1.015 (1.002-1.036); Urobilinogen Normal mg/dL (Less than 2)
[2020-08-06 21:40] VITALS: BMI 30.9
[2020-08-06] MEDS ORDERED: Acetaminophen 325 MG TAB PO PRN (21:54)
[2020-08-06] MEDS ORDERED: Ondansetron PF 4 MG/2 ML Vial IVP PRN (21:54)
[2020-08-06] MEDS ORDERED: Ondansetron ODT 4 MG TAB PO PRN (21:54)
[2020-08-06] MEDS ORDERED: HYDROcodone/Acetaminophen 7.5/325 mg Tablet PO PRN (21:54)
[2020-08-06] MEDS: Sodium Chloride 0.9% 1,000 ML IV SCH (22:38)
[2020-08-06] MEDS: Piperacillin/Tazobactam 4.5 GM in Sodium Chloride 0.9% 100 ML IVPB SCH (22:39)
[2020-08-07 04:57] LABS: SARS-CoV-2 PCR by NAA Not Detected (NotDetected)
[2020-08-07] MEDS: Piperacillin/Tazobactam 4.5 GM in Sodium Chloride 0.9% 100 ML IVPB SCH (05:05)
[2020-08-07 06:25] LABS: #Eosinphils 0.1 thou/uL (0.0-0.7); #Monocytes 0.5 thou/uL (0.11-0.59); %Basophils 0.4 % (0.0-1.0); %Eosinophils 1.6 % (0.0-10.0); %Lymphocytes 29.7 % (21.0-51.0); %Neutrophils 61.2 % (42.0-75.0); Hemoglobin 8.9 g/dL (12.0-16.0); Mean Corpuscular HGB CONC 31.3 g/dL (32.0-36.0); Mean Corpuscular Hemoglobin 23.2 pg (27.0-31.0); Mean Corpuscular Volume 74.4 fL (78.0-98.0); Mean Platelet Volume 7.9 fL (7.4-10.4); Platelet Count 387 thou/uL (130-400); RBC Distribution Width 15.2 % (11.5-14.5); Red Blood Cell (RBC) Count 3.84 mill/uL (4.20-5.40); White Blood Cell (WBC) Count 6.6 thou/uL (4.8-10.8)
[2020-08-07 06:44] LABS: Anion Gap 12 mmol/L (10-20); BUN (Urea Nitrogen) 10 mg/dL (7.0-18.7); Calc. Creatinine Clearance 137 mL/min (70-130); Calcium 8.3 mg/dL (7.8-10.44); Carbon Dioxide 24 mmol/L (22-29); Chloride 108 mmol/L (98-107); Glucose 93 mg/dL (70-105); Potassium 3.6 mmol/L (3.5-5.1); Sodium 140 mmol/L (136-145)
[2020-08-07 07:16] VITALS: BP 102/64; TEMP 98.2
[2020-08-07] MEDS: Sodium Chloride 0.9% 1,000 ML IV SCH (10:02)
[2020-08-07] MEDS ORDERED: Acetaminophen 500 MG TAB PO PRN (10:07)
[2020-08-07] MEDS ORDERED: Ketorolac Tromethamine 30 MG/ML VIAL IVP PRN (10:07)
[2020-08-07] MEDS ORDERED: Fentanyl 100 MCG/2 ML VIAL ONE ×3 (10:08→12:33)
[2020-08-07] MEDS ORDERED: Bupivacaine PF 0.5% 30 ML VIAL ONE (10:10)
[2020-08-07] MEDS ORDERED: EPINEPHrine 1 MG/ML AMP ONE (10:10)
[2020-08-07] MEDS ORDERED: Iothalamate Meglumine 60% 50 ML VIAL FS ONE (10:10)
[2020-08-07] MEDS ORDERED: Acetaminophen 500 MG TAB PO SCH (10:15)
[2020-08-07] MEDS ORDERED: Ketorolac Tromethamine 30 MG/ML VIAL IVP SCH (10:15)
[2020-08-07] MEDS ORDERED: Acetaminophen 500 MG TAB ONE (10:21)
[2020-08-07] MEDS ORDERED: Scopolamine 1.5 mg/72 hour Patch ONE (10:21)
[2020-08-07] MEDS ORDERED: Ketorolac Tromethamine 30 MG/ML VIAL ONE (10:21)
[2020-08-07] MEDS ORDERED: ePHEDrine Sulfate 50 MG/10 ML VIAL ONE (10:39)
[2020-08-07] MEDS ORDERED: Rocuronium Bromide 10 MG/ML (10ML VIAL) ONE (10:39)
[2020-08-07] MEDS ORDERED: Lidocaine 1% PF 5 ML VIAL ONE ×2 (10:39)
[2020-08-07] MEDS ORDERED: Ondansetron PF 4 MG/2 ML Vial ONE (10:39)
[2020-08-07] MEDS ORDERED: PROPOFOL 200 MG/20 ML VIAL ONE (10:39)
[2020-08-07] MEDS ORDERED: Glycopyrrolate 0.2 MG/ML 5 ML SYRINGE ONE (10:39)
[2020-08-07] MEDS ORDERED: Dexamethasone 20 MG/5 ML VIAL ONE (10:39)
[2020-08-07] MEDS ORDERED: Scopolamine 1.5 mg/72 hour Patch TD SCH (11:00)
[2020-08-07] MEDS ORDERED: Promethazine HCl 25 MG/ML VIAL IM PRN (12:03)
[2020-08-07] MEDS ORDERED: Ondansetron HCl/PF 4 MG/2 ML Vial IVP PRN (12:03)
[2020-08-07] MEDS ORDERED: Promethazine HCl 25 MG/ML VIAL SLOW IVP PRN (12:03)
[2020-08-07] MEDS ORDERED: traMADol HCl 50 MG TAB PO PRN (12:13)
[2020-08-07] MEDS ORDERED: Ibuprofen 600 MG TAB PO PRN (12:13)
[2020-08-07] MEDS ORDERED: Promethazine HCl 25 MG/ML VIAL ONE (12:15)
[2020-08-07 14:46] LABS: Iron 11 ug/dL (50-170); Iron Binding Capacity, Total 401 mcg/dL (265-497)
== END 2020-08-07 16:03 | disposition home or self-care (01) | DRG 419 ==
LOC: ERS 16:13 → T4-B 20:12
PROVIDERS: ADMIT Student in an Organized Health Care Education/Training Program; ATTEND Student in an Organized Health Care Education/Training Program
PROC: 0FT44ZZ Resection of Gallbladder, Percutaneous Endoscopic Approach (ICD-10-PCS; principal; 2020-08-07)
PROC: 0WQF4ZZ Repair Abdominal Wall, Percutaneous Endoscopic Approach (ICD-10-PCS; 2020-08-07)
PROC: BF131ZZ Fluoroscopy of Gallbladder and Bile Ducts using Low Osmolar Contrast (ICD-10-PCS; 2020-08-07)
DX: K80.10 Calculus of gallbladder with chronic cholecystitis without obstruction (principal); K42.9 Umbilical hernia without obstruction or gangrene; Z20.822 Contact with and (suspected) exposure to COVID-19; I10 Essential (primary) hypertension; D50.9 Iron deficiency anemia, unspecified; Z79.899 Other long term (current) drug therapy
CPT/HCPCS: 36415; 47532; 76705; 80048; 80053; 81003; 81015; 82728; 83540; 83550; 83690; 84703; 85025; 87635; 88304; 94760; 96374; 96375; J0171; J1100; J1610; J1885; J2405; J2543; J2550; J2704; J3010; J3490; Q9961; S0020; U0003; U0005

== ENCOUNTER 2020-08-08 14:07 | Emergency (ER) | payer SELFPAY ==
[2020-08-08] MEDS ORDERED: traMADol HCl 50 MG TAB ONE (16:15)
== END 2020-08-08 16:27 | disposition home or self-care (01) ==
LOC: ERS 14:07
DX: Z48.817 Encounter for surgical aftercare following surgery on the skin and subcutaneous tissue (principal); I10 Essential (primary) hypertension
CPT/HCPCS: 99281

== ENCOUNTER 2024-11-27 13:26 | Emergency (ER) | payer OTHER, SELFPAY ==
[2024-11-27] MEDS ORDERED: Ibuprofen 800 MG TAB ONE (15:22)
[2024-11-27] MEDS ORDERED: Acetaminophen 500 MG TAB ONE (15:22)
== END 2024-11-27 15:35 | disposition home or self-care (01) ==
LOC: ERS 13:26
DX: S89.92XA Unspecified injury of left lower leg, initial encounter (principal); I10 Essential (primary) hypertension; W01.0XXA Fall on same level from slipping, tripping and stumbling without subsequent striking against object, initial encounter
CPT/HCPCS: 99283